=== PATIENT | female | born 1950 | race American Indian/Alaskan Native ===

== ENCOUNTER 2022-03-25 14:11 | Inpatient (IN) | payer OTHER ==
[2022-03-25] MEDS ORDERED: ACETAMINOPHEN 1000 MG/100 ML BAG IVPB ONE (16:19)
[2022-03-25] MEDS ORDERED: ACETAMINOPHEN INJECTION 100 ML IVPB ONE (16:24)
[2022-03-25 17:13] LABS: HEMATOCRIT 42.3 % (32.4-45.2); HEMOGLOBIN 13.8 GM/dL (10.7-15.3); MCH 29.3 pg (25.7-33.7); MCHC 32.6 g/dl (32.0-36.0); MEAN CELL VOLUME 89.8 fl (80-96); MEAN PLT VOLUME 10.1 fl (7.5-11.1); PLATELET COUNT 144 10^3/uL (134-434); RBC 4.71 M/mm3 (3.60-5.2); RDW 12.7 % (11.6-15.6); WHITE BLOOD COUNT 3.7 K/mm3 (4.0-10.0)
[2022-03-25 17:31] LABS: BLOOD UREA NITROGEN 22.4 mg/dL (7-18); CALCIUM 8.7 mg/dL (8.5-10.1)
[2022-03-25 17:32] LABS: ALBUMIN 3.6 g/dl (3.4-5.0)
[2022-03-25 17:35] LABS: CREATININE 0.9 mg/dL (0.55-1.3)
[2022-03-25 17:36] LABS: BILIRUBIN,TOTAL 0.7 mg/dL (0.2-1); TOT PROT 6.6 g/dl (6.4-8.2)
[2022-03-25] MEDS ORDERED: SODIUM CHLORIDE 1,000 ML IV SCH (19:00)
[2022-03-25] MEDS ORDERED: ENOXAPARIN NA (PORCINE) 40 MG/0.4 ML DISP.SYRIN SQ ONE (20:47)
[2022-03-25] MEDS: ENOXAPARIN NA (PORCINE) 40 MG/0.4 ML DISP.SYRIN SQ SCH (21:13)
[2022-03-26 04:39] VITALS: RESP 18
[2022-03-26 05:19] VITALS: BMI 18.7
[2022-03-26 10:12] LABS: BASO % 0.3 % (0-2.0); EOS % 0.2 % (0-4.5); HEMOGLOBIN 12.7 GM/dL (10.7-15.3); LYMPH % 23.6 % (8-40); MCH 30.3 pg (25.7-33.7); MCHC 34.2 g/dl (32.0-36.0); MEAN CELL VOLUME 88.7 fl (80-96); MEAN PLT VOLUME 9.7 fl (7.5-11.1); MONO % 14.6 % (3.8-10.2); NEUT % 61.3 % (42.8-82.8); PLATELET COUNT 131 10^3/uL (134-434); RBC 4.17 M/mm3 (3.60-5.2); RDW 12.9 % (11.6-15.6); WHITE BLOOD COUNT 2.5 K/mm3 (4.0-10.0)
[2022-03-26 10:33] LABS: ALBUMIN 3.2 g/dl (3.4-5.0); BLOOD UREA NITROGEN 20.5 mg/dL (7-18); CALCIUM 8.2 mg/dL (8.5-10.1)
[2022-03-26 10:35] LABS: BILIRUBIN,TOTAL 0.8 mg/dL (0.2-1)
[2022-03-26 10:36] LABS: PHOSPHOROUS 3.2 mg/dL (2.5-4.9); TOT PROT 5.8 g/dl (6.4-8.2)
[2022-03-26] MEDS: ENOXAPARIN NA (PORCINE) 40 MG/0.4 ML DISP.SYRIN SQ SCH (10:54)
[2022-03-26 20:23] VITALS: BP 145/90; PULSE 78; TEMP 98.9
== END 2022-03-26 20:25 | disposition short-term general hospital (02) | DRG 56 ==
LOC: JER 14:11 → JERBED 18:46 → J6S 22:52
PROVIDERS: ADMIT Internal Medicine; ATTEND Internal Medicine
DX: G91.1 Obstructive hydrocephalus (principal); U07.1 COVID-19; R74.01 Elevation of levels of liver transaminase levels
CPT/HCPCS: 0241U-QW; 36415; 70450-TC; 71046-TC-FY; 80053; 80307; 82728; 82962; 83605; 83615; 83735; 84100; 84443; 84484; 85025; 85027; 85379; 85651; 86140; 87086; 93005; 93010; 99285-25